=== PATIENT | female | born 1980 | race African-American/Black ===

== ENCOUNTER 2019-10-25 10:44 | Emergency (ER) | payer SELFPAY ==
[2019-10-25 10:54] VITALS: BP 114/66; PULSE 93; RESP 20; TEMP 36.6; O2SAT 98
--- NOTE | 2019-10-25 11:24 | ED.URI ---
HPI - URI/Sore Throat General Chief Complaint: Upper Respiratory Infection Stated Complaint: SOB/chest tightness/cough Time Seen by Provider: 10/25/19 11:34 Source: patient and RN notes reviewed Mode of arrival: ambulatory Limitations: no limitations History of Present Illness HPI Narrative: A 39 y/o female, who is a occasional smoker and nondrinker, presents to the with constant, worsening, SOB with wheezes beginning roughly 8 hours ago. She states that she has a hx of asthma and that she just finished a small dose of prednisone for 7 days. She reports that she is in town from [place] and that she brought her inhaler but not her nebulizer. She notes that neither the prednisone or the inhaler did not help her symptoms. She also notes that she flies home tomorrow and that she has a appointment to she her doctor on Friday. She denies any sore throat, ear ache, CP, fevers, sputun changes and any other medical complaints. She also refuses a flu swab at this time. MD elicited complaint: other (SOB with wheezes) Pertinent past history: asthma Onset (ago): hour(s) (8) Consistency: constant and progressively worsening Relieving factors: nothing Context: recent travel Associated symptoms: denies other symptoms Treatments prior to arrival: other (inhaler and prednisone) Related Data Home Medications Medication Instructions Recorded Confirmed Advair Diskus 10/25/19 Albuterol Inhaler 10/25/19 Albuterol Neb 10/25/19 prednisone 10/25/19 10/25/19 Allergies Allergy/AdvReac Type Severity Reaction Status Date / Time No Known Allergies Allergy Verified 10/25/19 11:00 Review of Systems Review of Systems: Narrative: General/Constitutional: No weight loss,fever Eyes: N0: Redness,discharge Ears/Nose/Throat: No: Epistaxis,ear discharge, sore throat, ear ache. Respiratory: Denies: Hemoptysis. Reports SOB with wheezes. Gastrointestinal: No Vomiting, Bleeding-rectal Skin: No Lumps, eruption Neurologic: No Focal Weakness,Sz Hematologic: Denies: Petechiae/Purpura Psychiatric: No: Suicida ideationl All Other Systems: Reviewed and Negative [facility] Past Medical History Medical History (Updated 10/26/19 @ 00:00 by Irma Garg) Asthma Medical history unknown Surgical History Surgical History (Updated 10/25/19 @ 11:24 by Krzysztof Burden) Surgical history unknown Exam Narrative: Exam Narrative: General Appearance: Well appearing, Well nourished EYE: PERRLA, Conjunctiva clear Ears: Auditory canal normal, TM normal Nose: Rhinorrhea, Mucousal erythema Mouth/Throat: MM moist, Uvula midline, Pharyngeal erythema Neck: Supple, No adenopathy Respiratory: No respiratory distress, Breath sounds equal, Clear to auscultation(with rare wheeze] Cardiovascular: RRR, No JVD Musculoskeletal: Non tender, Normal strength Skin: Warm, Dry Neurological: A&O x3, CN II-XII intact Psychiatric: Normal mood, Normal affect Course Vital Signs Vital signs: Vital Signs Temperature 97.9 F 10/25/19 10:54 Pulse Rate 93 10/25/19 10:54 Respiratory Rate 10/25/19 10:54 Blood Pressure 114/66 10/25/19 10:54 Pulse Oximetry 98 10/25/19 10:54 Temperature 97.9 F 10/25/19 10:54 Pulse Rate 93 10/25/19 10:54 Respiratory Rate 20 10/25/19 10:54 Blood Pressure 114/66 10/25/19 10:54 Pulse Oximetry 98 10/25/19 10:54 Discharge Plan Discharge Clinical Impression: Wheezing-associated respiratory infection (WARI) Patient Disposition: Home, Self-Care Condition: Improved Instructions: Antibiotic Form, Bronchospasm (ED) Additional Instructions: Continue your inhalers, see your doctor this week as scheduled Prescriptions: New prednisone 10 mg Tablets,Dose Pack See Taper mg PO DAILY 12 Days Qty: 42 RF: 0 montelukast [Singulair] 10 mg tablet 10 mg PO HS Qty: 20 RF: 1 azithromycin 250 mg tablet See Rx Instructions .ROUTE .COMPLEX Qty: 6 RF: 0 No Action Albuterol Inhaler
[2019-10-25] MEDS: ALBUTEROL SULFATE NEB 2.5 MG/3 ML INH INHALATION (11:39)
[2019-10-25] MEDS: IPRATROPIUM BR 0.02% INH SOLN 0.5 MG/2.5 ML VIAL INHALATION (11:40)
--- NOTE | 2019-10-25 11:53 | PC.NURSE ---
patient done with aerosol tx of albuterol 0.083 and ipratropium 0.02 by mouth piece. tolerated very well. states feels much better on evaluation
== END 2019-10-25 12:00 | disposition home or self-care (01) ==
PROVIDERS: Emergency Provider Emergency Medicine
DX: J98.01 Acute bronchospasm (principal)
CPT/HCPCS: 94640; 99203; G0463